=== PATIENT | male | born 2000 | race Caucasian/White ===

== ENCOUNTER 2023-12-10 18:37 | Emergency (ER) | payer OTHER, SELFPAY ==
[2023-12-10 18:39] VITALS: BP 127/87
[2023-12-10 18:54] LABS: % Basophils 0.4 % (0-2); % Immature Granulocytes 0.3 % (0-0.5); % Lymphocytes 30.8 % (20.5-51.1); % Monocytes 10.4 % (1.7-9.3); % Neutrophils 55.1 % (42.2-75.2); Absolute Eosinophils 0.2 10^3/uL (0-0.7); Absolute Lymphocytes 2.2 10^3/uL (1.2-3.4); Absolute Monocytes 0.7 10^3/uL (0.1-0.6); Absolute Neutrophils 3.9 10^3/uL (1.4-6.5); Hematocrit 43.7 % (39.0-52.0); Hemoglobin 14.6 g/dL (13.0-18.0); Mean Corp Hgb Conc. 33.4 g/dL (33.0-37.0); Mean Corpuscular Hgb 29.6 pg (27.0-31.0); Mean Corpuscular Volume 88.5 fL (80.0-94.0); Mean Platelet Volume 11.7 fL (7.4-10.4); Nucleated Red Blood Cells % 0 % (-); Platelet Count 196 10^3/uL (130-400); Red Blood Cell Count 4.94 10^6/uL (4.70-6.10); Red Cell Dist. Width 11.9 % (11.5-14.5)
[2023-12-10 19:09] LABS: ALT (SGPT) 16 U/L (0-50); AST (SGOT) 25 U/L (17-59); Albumin 4.6 g/dl (3.5-5.0); Alkaline Phosphatase 83 U/L (38-126); Blood Urea Nitrogen 15 mg/dl (9-20); Calcium 9.5 mg/dl (8.4-10.2); Carbon Dioxide 29 mmol/L (22-30); Chloride 106 mmol/L (98-107); Glucose 107 mg/dl (70-99); Lipase 60 U/L (23-300); Potassium 4.7 mmol/L (3.5-5.1); Sodium 142 mmol/L (135-145); Total Bilirubin 0.4 mg/dl (0.2-1.3); Total Protein 7.1 g/dl (6.3-8.2); eGFR > 60.00
--- NOTE | 2023-12-10 20:26 | ED.GENMED ---
History of Present Illness
General
Chief Complaint: Abdominal Pain
Source: patient
Exam Limitations: none
Time Seen by Provider: 12/10/23 20:17
Nursing documentation reviewed up to this point in time: agreed with
History of Present Illness
History of Present Illness:
23 yo male presents with pain left upper quadrant, around ribs in that area to back since 5:30 this a.m. No recollection of overuse or injury but he works in [employer] and does heavy lifting. Denies f/c/n/v/d/c.
Past History
Past History
ED Past Medical History: Psychiatric (Depression, suicide attempts, anxiety)
ED Past Surgical History: None
Social History
Alcohol: Occasional
Drug: None
Personal: Single
Living: with family
Employment: Employed ([employer])
Review of Systems
Review of Systems
Allergies reviewed?: Yes
All Other Systems: ROS reviewed and negative except as documented in HPI and ROS
Constitutional: Denies fever
Respiratory: Denies cough or trouble breathing
ABD/GI: Reports abdominal pain (LUQ); Denies nausea, vomiting, diarrhea, constipated or anorexia
: Denies dysuria, frequency, difficulty voiding or urgency
Musculoskeletal: Reports back pain (LUQ pain along with pain left side and left flank)
Skin: Reports no symptoms
Neurological: Reports no symptoms
Phy Exam
Physical Exam
Physical Exam:
GENERAL: No acute distress. A&Ox3.
CONSTITUTIONAL: Afebrile.
RESPIRATORY: Regular respirations, nonlabored, lungs clear.
CARDIOVASCULAR: Regular rate and rhythm, no murmurs, no rubs.
GI: Soft, tender to palpate left lower rib cage and upper abdomen, tender lateral left lower ribcage. Pain aggravated with movement, twisting side to side while standing, bending forward. normal BS
MUSCULOSKELETAL: Moves with ease. Well perfused.
SKIN: Warm, dry, pink
PSYCH: Normal mood and affect. Well kept, interactive and appropriate
NEUROLOGIC: Awake, alert and oriented. No focal neurological deficits
Course
Orders/Labs/Results
Orders:
Orders
12/10/23 18:45
CBC/With Diff [Complete Blood Count/With Diff] Urgent
CMP [Comprehensive Metabolic Panel] Urgent
Lipase Urgent
12/10/23 20:37
Urinalysis Reflex To Culture Urgent
Date Specimen was Collected: 12/10/23
Time Specimen was Collected: 20:35
Urine Microscopic Reflex Cult Urgent
Urine Culture Urgent
DORI Source: U
Specimen Description:
Date Specimen was Collected: 12/10/23
Time Specimen was Collected: 20:35
Abnormal Lab Results
12/10/23 12/10/23
18:45 20:37
MPV 11.7 H fL
(7.4-10.4)
Absolute Monos (auto) 0.7 H 10^3/uL
(0.1-0.6)
Monocytes % 10.4 H %
(1.7-9.3)
Glucose 107 H mg/dl
(70-99)
Leukocyte Esterase Rfl 1+ A
(Negative)
Urine WBC (Reflex) 26-30 A /HPF
(0-5)
12/10/23 18:45
12/10/23 18:45
Vital Signs
Initial and Last Documented VS:
Initial Vital Signs
Temp Pulse Resp BP Pulse Ox
97.8 F 102 18 127/87 96
12/10/23 18:39 12/10/23 18:39 12/10/23 18:39 12/10/23 18:39 12/10/23 18:39
Last Documented Vital Signs
Temp Pulse Resp BP Pulse Ox
97.8 F 102 18 127/87 96
12/10/23 18:39 12/10/23 18:39 12/10/23 18:39 12/10/23 18:39 12/10/23 18:39
MDM/Problems Addressed
Differential Diagnosis Includes:
Musculoskeletal pain, kidney stone, pancreatitis
MDM/Problems Addressed:
23 yo male presents with pain left upper quadrant, around ribs in that area to back since 5:30 this a.m. 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 Denies f/c/n/v/d/c.
Afebrile, NAD
CBC normal
CMP normal
Lipase normal
U/A: Neg
Clearly musculoskeletal pain as it is directly reproducible with palpation, worse with twisting and turning.
He lifts at work and agrees this may be a muscle strain.
At discharge, pt ambulated out with normal gait
*Critical Care Note
Total Time (30-74mins, 75-104mins- exclusive of procedures): Not Applicable
ED Attending Note
-
Portions of this chart may have been created with voice recognition software.� Occasional wrong word or��sound alike� substitutions may have occurred due to the inherent limitations of voice recognition software.
Discharge Plan
Departure
Patient Disposition: Home (Routine Discharge)
Date of Disposition: 12/10/23
Time of Disposition: 21:09
Patient with high blood pressure during this ER visit?: No
Condition: Good
Discharge Problem:
Rib pain on left side
Instructions: Abdominal Pain, Musculoskeletal Pain
Prescriptions:
No Action
sertraline 100 MG tablet
100 mg PO DAILY
Referrals:
Brady Kinney, DO [Family Provider] - As needed
Activity Restrictions/Additional Instructions:
As we discussed, your workup here shows nothing worrisome.
You may have strained the muscles of the lower left ribs/abdominal wall
Ibuprofen 600 mg (with food) every 6 hours as needed for pain
Avoid straining the area
See your doctor for recheck if not much improved in one week
Interventions
Interventions:
*Risk Screen - Suicide Last Done: 12/10/23 18:39
*General Assessment Last Done: 12/10/23 18:39
*Neglect/Abuse Screening Last Done: 12/10/23 20:39
ED- Fall Risk Assessment Last Done: 12/10/23 20:39
VD-Ijxkap-Jitsggfhju Assessment Last Done: 12/10/23 20:39
Discharge Date and Time
Print Language: [place]THER[place] IRISH
[2023-12-10 20:46] LABS: Urine Albumin Negative (Neg - Trace); Urine Bilirubin Negative (Negative); Urine Character Clear (Clear); Urine Color Yellow; Urine Glucose Negative (Negative); Urine Ketone Negative (Negative); Urine Leukocyte 1+ (Negative); Urine Nitrite Negative (Negative); Urine Occult Blood Negative (Negative); Urine Urobilinogen Negative (Neg - 1+)
[2023-12-10 21:07] LABS: Urine White Cell 26-30 /HPF (0-5)
[2023-12-10 21:08] LABS: Urine Calcium Oxalate Crystals Present; Urine Red Blood Cell 0-2 /HPF (0-2)
== END 2023-12-10 21:16 | disposition home or self-care (01) ==
LOC: EMR 18:37
PROVIDERS: Emergency Medicine; Registered Nurse; EMERGENCY PHYSICIAN Emergency Medicine; FAMILY PHYSICIAN Internal Medicine
DX: R10.12 Left upper quadrant pain (principal); M54.9 Dorsalgia, unspecified; R07.81 Pleurodynia; F32.A Depression, unspecified; F41.9 Anxiety disorder, unspecified; Z91.51 Personal history of suicidal behavior; Z88.0 Allergy status to penicillin
CPT/HCPCS: 99283; 80053; 81003; 81015; 83690; 85025; 87086

== ENCOUNTER 2025-03-06 23:29 | Emergency (ER) | payer OTHER, SELFPAY ==
[2025-03-06 23:33] VITALS: BP 118/82
[2025-03-07] MEDS: DELTASONE 50 MG PO (01:01)
[2025-03-07] MEDS: AFRIN NASAL SPRAY 2 SPRAYS NASAL (01:01)
[2025-03-07 01:03] VITALS: BP 90/68
[2025-03-07 01:04] VITALS: BMI 26.1
--- NOTE | 2025-03-07 01:39 | ED.GENMED ---
History of Present Illness
General
Chief Complaint: Breathing Problem
Source: patient
Exam Limitations: none
Time Seen by Provider: 03/07/25 00:45
Nursing documentation reviewed up to this point in time: agreed with
History of Present Illness
History of Present Illness:
The patient is a 24-year-old male who presented with trouble breathing and congestion. He reports that his airways feel clogged, particularly in the throat area, making it difficult for him to breathe. The patient was diagnosed with mononucleosis
two days prior to this visit through blood tests. His symptoms have persisted, including difficulty sleeping for the past few days due to the congestion and breathing issues.
The patient was initially prescribed doxycycline by a previous healthcare provider before the diagnosis of mononucleosis was confirmed.he had a telehealth visit with his PCP on Saturday, March 03. Home COVID and influenza testing were
negative. Outpatient blood work returned positive for mononucleosis. He was prescribed doxycycline on Saturday which he has continued to take. No difficulty swallowing, appetite has been good.
He admits that his symptoms are worse when lying down.
Past History
Past History
ED Past Medical History: Psychiatric (Depression, suicide attempts, anxiety/depression)
ED Past Surgical History: None
Social History
Tobacco: Smoker
Alcohol: Occasional
Drug: None
Personal: Single
Living: with family
Employment: Employed ([employer])
Family History
Family History: Other (Noncontributory)
Phy Exam
Physical Exam
Physical Exam:
GENERAL: 24-year-old male appears his stated age, awake and alert, pleasant, appears in no acute distress. Moderate nasal, stuffy voice is noted. There is no stridor. No difficulty handling secretions. No respiratory distress.
EYE: pupils equal and reactive. anicteric
NECK: Supple, nontender, no meningismus, mild submandibular adenopathy bilaterally.
ENT: posterior pharynx is mildly injected with moderately enlarged tonsils with mild whitish exudate bilateral tonsils, oral mucosa is moist. Uvula is midline without edema. TM clear b/l. Tonsils do not approximate each other and there is no
evidence of peritonsillar abscess. Nares have moderately boggy turbinates with scant pearly rhinorrhea.
CARDIAC: Regular rate and rhythm. no murmur.
LUNGS: Clear breath sounds bilaterally, no acute respiratory distress, no wheezes/rales/rhonchi
ABDOMEN: Soft, nondistended, without focal tenderness, normoactive BS.
NEUROLOGICAL: Alert and oriented x3, no focal neuro deficits. Gait is steady.
SKIN: Warm and dry, normal color, skin intact. No rash.
MUSCULOSKELETAL: No C/C/E. peripheral pulses are full and equal b/l. No palpable tenderness.
PSYCH: Normal and appropriate interaction.
Scores
Heart Failure Risk
Heart Failure Risk Score: Not Applicable
Sepsis
Sepsis Screening
Sepsis Assessment: Sepsis Ruled Out
Sepsis Screen
Sepsis Screen: Sepsis Ruled Out
Date: 03/07/25
Time: 01:50
Course
Orders/Labs/Results
Orders:
Orders
03/07/25 00:56
Oxymetazoline HCl [Afrin Nasal [place]] See Dose Instructions NASAL NOW STA
Prednisone [Deltasone] 50 mg PO NOW STA
03/07/25 01:06
Rapid Strep Group A Urgent
DORI Source: Throat/Pharynx
Specimen Description:
Date Specimen was Collected: 03/07/25
Time Specimen was Collected: 00:58
Vital Signs
Initial and Last Documented VS:
Initial Vital Signs
Temp Pulse Resp BP Pulse Ox
99.5 F 116 24 118/82 95
03/06/25 23:33 03/06/25 23:33 03/06/25 23:33 03/06/25 23:33 03/06/25 23:33
Last Documented Vital Signs
Temp Pulse Resp BP Pulse Ox
99.5 F 96 18 90/68 96
03/06/25 23:33 03/07/25 01:06 03/07/25 01:06 03/07/25 01:03 03/07/25 01:05
MDM/Problems Addressed
Differential Diagnosis Includes:
The Differential Diagnosis includes, in no particular order and is not limited to:
- Mononucleosis
- Upper respiratory infection
- Sinusitis
- Allergic rhinitis
- Pharyngitis
- Bronchitis
- Asthma
- Chronic obstructive pulmonary disease (COPD)
- Pulmonary edema
- Gastroesophageal reflux disease (GERD)
MDM/Problems Addressed:
Acute sore throat, nasal congestion, difficulty sleeping.
Recently diagnosed with mononucleosis.
He is noted to have moderate bilateral tonsillar hypertrophy with scant exudate bilateral tonsils.
Will check rapid strep for completeness sake, assess for potential additional diagnosis of strep pharyngitis. If rapid strep is negative would recommend he discontinue doxycycline.
Will add a short course of Afrin nasal spray for nasal congestion. He can continue this for no more than 3 days.
Will also add a short course of prednisone.
Discussed importance of staying well-hydrated on a daily basis.
Elevate head of bed when sleeping.
Recommend humidifier or vaporizer at nighttime to assist with cough, congestion.
Prompt follow-up with PCP for recheck.
Chronic conditions affecting care: Psychiatric illness
*Pulse Oximetry
SaO2: 96
Oxygen Mode of Delivery: Room air
Patient hypoxic: no
*Critical Care Note
Total Time (30-74mins, 75-104mins- exclusive of procedures): Not Applicable
Update Note
Update Note:
01:45
Rapid strep is negative.
Patient feeling improved after Afrin nasal spray. Resting comfortably.
Plan as above.
ED Attending Note
-
Portions of this chart may have been created with voice recognition software.� Occasional wrong word or��sound alike� substitutions may have occurred due to the inherent limitations of voice recognition software.
Discharge Plan
Departure
Patient Disposition: Home (Routine Discharge)
Date of Disposition: 03/07/25
Time of Disposition: 01:46
Patient with high blood pressure during this ER visit?: No
Condition: Good
Discharge Problem:
Infectious mononucleosis
Instructions: Mononucleosis
Prescriptions:
New
prednisone 50 mg tablet
50 mg PO DAILY Qty: 3 0RF
No Action
sertraline 100 MG tablet
100 mg PO DAILY
Referrals:
Brady Kinney, [Family Provider] - Call in 1-3 days for appt
Interventions
Interventions:
*Risk Screen - Suicide Last Done: 03/06/25 23:33
*General Assessment Last Done: 03/07/25 01:04
*Neglect/Abuse Screening Last Done: 03/06/25 23:33
*ED- Fall Risk Assessment Last Done: 03/07/25 01:04
*ED COVID-19 Vaccine History Last Done: 03/07/25 01:04
ED- Cardiac Assessment Last Done: 03/07/25 01:04
ED- Pulmonary Assessment Last Done: 03/07/25 01:04
Discharge Date and Time
Print Language: [place]
== END 2025-03-07 02:02 | disposition home or self-care (01) ==
LOC: EMR 23:29
PROVIDERS: EMERGENCY PHYSICIAN Emergency Medicine; FAMILY PHYSICIAN Internal Medicine
DX: B27.90 Infectious mononucleosis, unspecified without complication (principal); F41.8 Other specified anxiety disorders; F17.200 Nicotine dependence, unspecified, uncomplicated; Z91.51 Personal history of suicidal behavior
CPT/HCPCS: 99283; 87070; 87147; 87880